=== PATIENT | male | born 1940 | race Caucasian/White ===

== ENCOUNTER 2022-10-22 08:20 | Inpatient (IN) | payer MEDICARE, OTHER ==
[~2022-10-22] VITALS: Ht 177.8 cm; Wt 68.9 kg
[~2022-10-22 08:20] MED LIST: ATOR10TA PO; ATOR10TA69 PO; FURO20TA4 PO; MEMA5TAB42 PO; MEMA5TAB7 PO
[2022-10-22 09:18] LABS: HEMATOCRIT. 41.1 % (42.0-52.0); HEMOGLOBIN. 14.1 g/dL (14.0-18.0); MEAN CORPUSCULAR HEMOGLOBIN 30.9 pg (28.0-32.0); MEAN CORPUSCULAR VOLUME 90.5 fL (80.0-94.0); MEAN PLATELET VOLUME 8.3 fl (7.4-10.4); PLATELET 224 x1000/uL (130-400); RED BLOOD CELL COUNT 4.54 mill/uL (4.7-6.1); RED CELL DISTRIBUTION WIDTH 13.8 % (11.6-14.6)
[2022-10-22 10:32] LABS: PLATELET ESTIMATE NORMAL
[2022-10-22 11:49] LABS: CHLORIDE 104 mEq/L (98-107)
[2022-10-22 11:52] LABS: INR 1.1; PROTHROMBIN TIME 11.3 sec (9.6-11.0)
[2022-10-22] MEDS ORDERED: MAGNESIUM/ALUMINUM HYDROXIDE/SIMETHICONE 30ML UDC PO PRN (13:45)
[2022-10-22] MEDS ORDERED: GUAIFENESIN 200MG/10ML SUGAR FREE UDC PO PRN (13:45)
[2022-10-22] MEDS ORDERED: IPRATROPIUM/ALBUTEROL 0.5-3(2.5)MG/3ML NEB NEB PRN (13:45)
[2022-10-22] MEDS ORDERED: CLONIDINE 0.1MG TABLET PO PRN (13:45)
[2022-10-22] MEDS ORDERED: DOCUSATE SODIUM 100MG CAPSULE PO PRN (13:45)
[2022-10-22] MEDS ORDERED: NITROGLYCERIN 0.4MG TABLET SL SL PRN (13:45)
[2022-10-22] MEDS ORDERED: ACETAMINOPHEN 325MG TABLET PO PRN ×2 (13:45)
[2022-10-22] MEDS ORDERED: NALOXONE HCL 0.4MG/ML VIAL IV PRN (14:00)
[2022-10-22] MEDS: MORPHINE SULFATE 2 MG/ML CPJ (NOT FOR IM USE) IV PRN ×2 (14:06→17:17)
[2022-10-22] MEDS: ONDANSETRON HCL 4MG/2ML INJ IV PRN ×2 (14:06→17:17)
[2022-10-22 15:51] LABS: T4 FREE 1.35 ng/dL (0.76-1.46)
[2022-10-22 16:12] LABS: VITAMIN B12 SERUM 442 pg/mL (211-911)
[2022-10-22 16:17] LABS: FOLIC ACID (FOLATE) SERUM > 20.00 ng/mL (>5.38)
[2022-10-22] MEDS: FERROUS SULFATE 300MG/5ML UDC PO SCH (17:17)
[2022-10-22] MEDS: ENOXAPARIN 40MG/0.4ML SYR SUBCUT SCH (21:00)
[2022-10-22] MEDS: FAMOTIDINE 20MG TABLET PO SCH ×2 (21:05→21:17)
[2022-10-23 05:17] LABS: HEMATOCRIT. 41.3 % (42.0-52.0); HEMOGLOBIN. 14.3 g/dL (14.0-18.0); MEAN CORPUSCULAR HEMOGLOBIN 31.3 pg (28.0-32.0); MEAN CORPUSCULAR VOLUME 90.4 fL (80.0-94.0); PLATELET 242 x1000/uL (130-400); RED BLOOD CELL COUNT 4.57 mill/uL (4.7-6.1); RED CELL DISTRIBUTION WIDTH 13.7 % (11.6-14.6)
[2022-10-23 05:21] VITALS: BP_SYST 140; BP_SYST 147; BP_DIAS 107
[2022-10-23 05:49] LABS: CHLORIDE 103 mEq/L (98-107)
[2022-10-23 05:59] LABS: PHOSPHORUS 3.6 mg/dL (2.5-4.9)
[2022-10-23 08:00] VITALS: BP 134/83
[2022-10-23] MEDS: FERROUS SULFATE 300MG/5ML UDC PO SCH ×3 (08:10→18:10)
[2022-10-23 12:00] VITALS: BP 149/91
[2022-10-23] MEDS ORDERED: IPRATROPIUM BROMIDE (0.02%) 0.5MG/2.5ML NEB HHN PRN (14:15)
[2022-10-23] MEDS ORDERED: ALBUTEROL (0.083%) 2.5MG/3ML NEB HHN PRN (14:15)
[2022-10-23] MEDS ORDERED: VANCOMYCIN HCL 1 GM/VIAL ONE (15:55)
[2022-10-23] MEDS ORDERED: BACITRACIN 15GM TUBE TOP ONE (15:55)
[2022-10-23] MEDS ORDERED: BUPIVACAINE HCL/PF 0.5% (5MG/ML) 30ML ONE (15:55)
[2022-10-23] MEDS ORDERED: LIDOCAINE HCL/EPINEPHRINE 1%-EPI 1:100,000 20 ML VIAL ONE (15:55)
[2022-10-23 16:00] VITALS: BP 101/65
[2022-10-23] MEDS ORDERED: LIDOCAINE HCL 1% 10 MG/ML 10ML VIAL ONE (16:36)
[2022-10-23] MEDS ORDERED: CEFAZOLIN SODIUM 1000MG/VIAL ONE (16:36)
[2022-10-23] MEDS ORDERED: PROPOFOL 200MG/20ML VIAL IV ONE (16:37)
[2022-10-23] MEDS ORDERED: HYDROMORPHONE HCL/PF 2MG/ML CPJ ONE ×2 (16:37)
[2022-10-23] MEDS ORDERED: MIDAZOLAM HCL 2 MG/2 ML VIAL ONE (16:37)
[2022-10-23] MEDS ORDERED: HYDROMORPHONE HCL/PF 2MG/ML CPJ IV PRN (17:30)
[2022-10-23] MEDS ORDERED: ONDANSETRON HCL 4MG/2ML INJ IV PRN (17:30)
[2022-10-23] MEDS ORDERED: LABETALOL 5MG/ML SYR 20 MG/4 ML SYRINGE IV PRN (17:30)
[2022-10-23] MEDS ORDERED: MEPERIDINE HCL/PF 25MG/ML CPJ IV PRN (17:30)
[2022-10-23 18:02] LABS: PLATELET ESTIMATE NORMAL
[2022-10-23 19:37] LABS: BG BASE EXCESS -1.3 mmol/L (-2.0-2.0); BG CARBOXYHEMOGLOBIN 0.8 % (0.5-1.5); BG DEOXYHEMOGLOBIN 2.3 % (0.0-5.0); BG FRACTION INSPIRED OXYGEN 100; BG METHEMOGLOBIN 0.3 % (0.0-1.5); BG OXYGEN SATURATION 97.7 % (92.0-98.5); BG OXYHEMOGLOBIN 96.6 % (94.0-97.0); BG PCO2 42.6 mmHg (35.0-45.0); BG PH 7.369 (7.350-7.450); BG PO2 99.3 mmHg (75.0-100.0); BG SAMPLE SITE LEFT RADIAL; BG TOTAL HEMOGLOBIN 13.8 g/dL (12.0-18.0); BG VENT MODE MASK - NRB
[2022-10-23 23:22] VITALS: BP 128/82
[2022-10-24] VITALS (10 sets, daily range): BP systolic 124–149; BP diastolic 73–82
[2022-10-24] MEDS: CEFAZOLIN 2,000 MG in DEXT 5% WATER 100 ML IV SCH ×3 (04:15→20:13)
[2022-10-24] MEDS: FERROUS SULFATE 300MG/5ML UDC PO SCH ×2 (09:10→13:13)
[2022-10-24] MEDS: MORPHINE SULFATE 2 MG/ML CPJ (NOT FOR IM USE) IV PRN ×2 (09:15→17:30)
[2022-10-24] MEDS: ONDANSETRON HCL 4MG/2ML INJ IV PRN (20:11)
[2022-10-24] MEDS: ENOXAPARIN 40MG/0.4ML SYR SUBCUT SCH (20:11)
[2022-10-24] MEDS: ZOLPIDEM TARTRATE 5MG TABLET PO PRN (20:12)
[2022-10-24] MEDS: TRAMADOL 50MG TABLET PO PRN (20:12)
[2022-10-24] MEDS: FAMOTIDINE 20MG TABLET PO SCH (20:13)
[2022-10-25] VITALS (12 sets, daily range): BP systolic 117–133; BP diastolic 71–86
[2022-10-25] MEDS: CEFAZOLIN 2,000 MG in DEXT 5% WATER 100 ML IV SCH ×3 (03:07→20:08)
[2022-10-25] MEDS: FERROUS SULFATE 300MG/5ML UDC PO SCH ×3 (10:31→17:23)
[2022-10-25] MEDS: FAMOTIDINE 20MG TABLET PO SCH ×2 (10:31→20:09)
[2022-10-25] MEDS: MORPHINE SULFATE 2 MG/ML CPJ (NOT FOR IM USE) IV PRN (17:24)
[2022-10-25] MEDS: ZOLPIDEM TARTRATE 5MG TABLET PO PRN (20:09)
[2022-10-25] MEDS: ENOXAPARIN 40MG/0.4ML SYR SUBCUT SCH (20:09)
[2022-10-25] MEDS: ONDANSETRON HCL 4MG/2ML INJ IV PRN (20:10)
[2022-10-25] MEDS: TRAMADOL 50MG TABLET PO PRN (20:10)
[2022-10-26] VITALS (40 sets, daily range): BP systolic 115–155; BP diastolic 70–98
[2022-10-26] MEDS: CEFAZOLIN 2,000 MG in DEXT 5% WATER 100 ML IV SCH ×2 (03:08→12:20)
[2022-10-26] MEDS ORDERED: DIATR MEGLU/DIATRIZOATE SOLN 30ML ONE (07:50)
[2022-10-26] MEDS: FERROUS SULFATE 300MG/5ML UDC PO SCH ×2 (08:00→12:18)
[2022-10-26] MEDS: FAMOTIDINE 20MG TABLET PO SCH (09:00)
== END 2022-10-26 16:45 | DRG 480 ==
LOC: ER 08:20 → MICUSO 11:53 → SUPCPDRO 13:33 → 7WST 10-23 05:45 → 5EST 10-23 23:20
PROVIDERS: ADMIT Internal Medicine; ATTEND Internal Medicine
PROC: 0QS606Z Reposition Right Upper Femur with Intramedullary Internal Fixation Device, Open Approach (ICD-10-PCS; principal; 2022-10-23)
DX: S72.141A Displaced intertrochanteric fracture of right femur, initial encounter for closed fracture (principal); G93.41 Metabolic encephalopathy; E44.1 Mild protein-calorie malnutrition; K94.23 Gastrostomy malfunction; E78.00 Pure hypercholesterolemia, unspecified; I10 Essential (primary) hypertension; F03.90 Unspecified dementia, unspecified severity, without behavioral disturbance, psychotic disturbance, mood disturbance, and anxiety; Z20.822 Contact with and (suspected) exposure to COVID-19; R13.10 Dysphagia, unspecified; R73.9 Hyperglycemia, unspecified; R26.9 Unspecified abnormalities of gait and mobility; Z68.21 Body mass index [BMI] 21.0-21.9, adult; Z82.49 Family history of ischemic heart disease and other diseases of the circulatory system; Z87.891 Personal history of nicotine dependence; Z85.819 Personal history of malignant neoplasm of unspecified site of lip, oral cavity, and pharynx; W18.30XA Fall on same level, unspecified, initial encounter; Y93.89 Activity, other specified; Y92.89 Other specified places as the place of occurrence of the external cause; Y99.8 Other external cause status; Y84.9 Medical procedure, unspecified as the cause of abnormal reaction of the patient, or of later complication, without mention of misadventure at the time of the procedure
CPT/HCPCS: 36415; 36600; 71045; 72170; 73502; 73552; 74018; 76000; 80053; 82375; 82607; 82746; 82805; 83540; 83550; 83735; 84100; 84439; 84443; 85025; 87426; 92523; 92610; 93005; 93970; 94640; 97162; 97166; 97530; 99285; C9803; J0690; J1170; J1650; J2250; J2270; J2405; J2704; J3370; J3490; J7060; Q9963; A4315; C1713

== ENCOUNTER 2022-10-26 16:35 | Inpatient (IN) | payer MEDICARE, OTHER ==
[~2022-10-26] VITALS: Ht 177.8 cm; Wt 66.2 kg
[2022-10-26 16:35] VITALS: BP 123/80
[2022-10-26 16:40] VITALS: BP 123/80
[2022-10-26 20:00] VITALS: BP 161/90
[2022-10-26] MEDS ORDERED: ACETAMINOPHEN 325MG TABLET PO PRN (22:00)
[2022-10-26] MEDS ORDERED: NALOXONE HCL 0.4 MG/ML 1ML VIAL IV PRN (22:00)
[2022-10-26] MEDS ORDERED: ONDANSETRON HCL 4MG/2ML INJ IV PRN (22:00)
[2022-10-26] MEDS ORDERED: IPRATROPIUM BROMIDE (0.02%) 0.5MG/2.5ML NEB HHN PRN (22:00)
[2022-10-26] MEDS ORDERED: ALBUTEROL (0.083%) 2.5MG/3ML NEB HHN PRN (22:00)
[2022-10-26] MEDS ORDERED: CLONIDINE 0.1MG TABLET PO PRN (22:00)
[2022-10-26] MEDS ORDERED: NITROGLYCERIN 0.4MG TABLET SL SL PRN (22:00)
[2022-10-26] MEDS ORDERED: MAGNESIUM/ALUMINUM HYDROXIDE/SIMETHICONE 30ML UDC PO PRN (22:00)
[2022-10-26] MEDS ORDERED: GUAIFENESIN 200MG/10ML SUGAR FREE UDC PO PRN (22:00)
[2022-10-26] MEDS: CEFAZOLIN 2,000 MG in DEXT 5% WATER 100 ML IV SCH (22:53)
[2022-10-26] MEDS: FAMOTIDINE 20MG TABLET PO SCH (22:53)
[2022-10-26] MEDS: ENOXAPARIN 40MG/0.4ML SYR SUBCUT SCH (23:11)
[2022-10-26] MEDS: MORPHINE SULFATE 2 MG/ML CPJ (NOT FOR IM USE) IV PRN (23:18)
[2022-10-27 06:40] LABS: HEMATOCRIT. 34.4 % (42.0-52.0); HEMOGLOBIN. 11.7 g/dL (14.0-18.0); MEAN CORPUSCULAR HEMOGLOBIN 30.9 pg (28.0-32.0); MEAN PLATELET VOLUME 8.4 fl (7.4-10.4); PLATELET 239 x1000/uL (130-400); RED BLOOD CELL COUNT 3.78 mill/uL (4.7-6.1); RED CELL DISTRIBUTION WIDTH 13.3 % (11.6-14.6)
[2022-10-27 07:01] LABS: CHLORIDE 107 mEq/L (98-107)
[2022-10-27] MEDS: CEFAZOLIN 2,000 MG in DEXT 5% WATER 100 ML IV SCH ×3 (07:03→21:41)
[2022-10-27 08:00] VITALS: BP 144/85
[2022-10-27] MEDS: FAMOTIDINE 20MG TABLET PO SCH ×2 (09:30→20:49)
[2022-10-27] MEDS: FERROUS SULFATE 300MG/5ML UDC PO SCH ×3 (09:30→17:20)
[2022-10-27] MEDS: MORPHINE SULFATE 2 MG/ML CPJ (NOT FOR IM USE) IV PRN (12:04)
[2022-10-27 12:43] LABS: PLATELET ESTIMATE NORMAL
[2022-10-27] MEDS: AMLODIPINE 5MG TABLET PO SCH (13:51)
[2022-10-27 20:00] VITALS: BP 111/64
[2022-10-27] MEDS: ENOXAPARIN 40MG/0.4ML SYR SUBCUT SCH (23:24)
[2022-10-28] MEDS: CEFAZOLIN 2,000 MG in DEXT 5% WATER 100 ML IV SCH ×3 (05:15→21:36)
[2022-10-28 06:14] LABS: HEMATOCRIT. 32.3 % (42.0-52.0); HEMOGLOBIN. 10.9 g/dL (14.0-18.0); MEAN CORPUSCULAR HEMOGLOBIN 30.6 pg (28.0-32.0); MEAN CORPUSCULAR VOLUME 90.8 fL (80.0-94.0); MEAN PLATELET VOLUME 7.8 fl (7.4-10.4); PLATELET 283 x1000/uL (130-400); RED BLOOD CELL COUNT 3.56 mill/uL (4.7-6.1); RED CELL DISTRIBUTION WIDTH 13.4 % (11.6-14.6)
[2022-10-28 06:17] LABS: CHLORIDE 107 mEq/L (98-107)
[2022-10-28 06:32] LABS: TOTAL IRON BINDING CAPACITY 118 ug/dL (250-450)
[2022-10-28 07:01] LABS: FOLIC ACID (FOLATE) SERUM 18.9 ng/mL (>5.38)
[2022-10-28 08:00] VITALS: BP 142/77
[2022-10-28] MEDS: AMLODIPINE 5MG TABLET PO SCH (08:23)
[2022-10-28] MEDS: FAMOTIDINE 20MG TABLET PO SCH (08:23)
[2022-10-28] MEDS: FERROUS SULFATE 300MG/5ML UDC PO SCH ×3 (08:23→18:18)
[2022-10-28 10:06] LABS: PLATELET ESTIMATE NORMAL
[2022-10-28] MEDS ORDERED: CYANOCOBALAMIN 1000MCG/ML VIAL IM NR (13:30)
[2022-10-28] MEDS ORDERED: IOPAMIDOL 10 ML VIAL IT ONE (16:51)
[2022-10-28] MEDS ORDERED: DIATRIZOATE MEGLUMINE 300ML INFUS BTL UR ONE (16:52)
[2022-10-28] MEDS ORDERED: DIATR MEGLU/DIATRIZOATE SOLN 30ML ONE (16:55)
[2022-10-28] MEDS: ENOXAPARIN 30MG/0.3ML SYR SUBCUT SCH (18:18)
[2022-10-28] MEDS: MENTHOL/LANOLIN/CALAMINE/ZN OX OINT 71GM TOP PRN (20:15)
[2022-10-28 20:17] VITALS: BP 112/55
[2022-10-29 07:47] LABS: CHLORIDE 103 mEq/L (98-107)
[2022-10-29 08:00] VITALS: BP 145/82
[2022-10-29 08:03] LABS: T4 FREE 1.23 ng/dL (0.76-1.46)
[2022-10-29] MEDS: FERROUS SULFATE 300MG/5ML UDC PO SCH ×3 (11:25→18:21)
[2022-10-29] MEDS: AMLODIPINE 5MG TABLET PO SCH (11:26)
[2022-10-29] MEDS: FAMOTIDINE 20MG TABLET PO SCH (11:27)
[2022-10-29] MEDS: TRAMADOL 50MG TABLET PO PRN ×2 (11:30→18:23)
[2022-10-29] MEDS: ENOXAPARIN 30MG/0.3ML SYR SUBCUT SCH (18:21)
[2022-10-29 20:00] VITALS: BP 138/65
[2022-10-30 06:58] LABS: HEMATOCRIT. 33.8 % (42.0-52.0); HEMOGLOBIN. 11.6 g/dL (14.0-18.0); MEAN CORPUSCULAR HEMOGLOBIN 30.5 pg (28.0-32.0); MEAN CORPUSCULAR VOLUME 89.1 fL (80.0-94.0); MEAN PLATELET VOLUME 7.7 fl (7.4-10.4); PLATELET 340 x1000/uL (130-400); RED BLOOD CELL COUNT 3.79 mill/uL (4.7-6.1); RED CELL DISTRIBUTION WIDTH 13.2 % (11.6-14.6)
[2022-10-30 08:00] VITALS: BP 127/72
[2022-10-30 08:13] LABS: CHLORIDE 100 mEq/L (98-107)
[2022-10-30] MEDS: AMLODIPINE 5MG TABLET PO SCH (08:51)
[2022-10-30] MEDS: FAMOTIDINE 20MG TABLET PO SCH ×2 (08:51→17:35)
[2022-10-30] MEDS: FERROUS SULFATE 300MG/5ML UDC PO SCH ×3 (08:51→17:06)
[2022-10-30] MEDS: TRAMADOL 50MG TABLET PO PRN (10:48)
[2022-10-30 16:58] LABS: PLATELET ESTIMATE NORMAL
[2022-10-30] MEDS: ENOXAPARIN 30MG/0.3ML SYR SUBCUT SCH (17:06)
[2022-10-30] MEDS ORDERED: ENOXAPARIN 40MG/0.4ML SYR SUBCUT SCH (18:00)
[2022-10-30 20:00] VITALS: BP 150/81
[2022-10-31] MEDS: ZOLPIDEM TARTRATE 5MG TABLET PO PRN ×2 (00:54→21:18)
[2022-10-31 08:00] VITALS: BP 120/75
[2022-10-31] MEDS: FAMOTIDINE 20MG TABLET PO SCH ×2 (08:41→17:31)
[2022-10-31] MEDS: FERROUS SULFATE 300MG/5ML UDC PO SCH ×3 (08:41→17:31)
[2022-10-31] MEDS: AMLODIPINE 5MG TABLET PO SCH (08:41)
[2022-10-31] MEDS: TRAMADOL 50MG TABLET PO SCH (08:44)
[2022-10-31] MEDS: ACETAMINOPHEN 500MG TABLET PO SCH (08:52)
[2022-10-31] MEDS: ENOXAPARIN 40MG/0.4ML SYR SUBCUT SCH (17:31)
[2022-10-31 19:46] VITALS: BP 139/64
[2022-10-31] MEDS: MENTHOL/LANOLIN/CALAMINE/ZN OX OINT 71GM TOP PRN (21:14)
[2022-11-01 06:13] LABS: HEMATOCRIT. 33.4 % (42.0-52.0); HEMOGLOBIN. 11.6 g/dL (14.0-18.0); MEAN CORPUSCULAR HEMOGLOBIN 30.8 pg (28.0-32.0); MEAN PLATELET VOLUME 8.2 fl (7.4-10.4); PLATELET 380 x1000/uL (130-400); RED BLOOD CELL COUNT 3.76 mill/uL (4.7-6.1); RED CELL DISTRIBUTION WIDTH 13.6 % (11.6-14.6)
[2022-11-01 06:18] LABS: CHLORIDE 100 mEq/L (98-107)
[2022-11-01 08:40] VITALS: BP 121/70
[2022-11-01] MEDS: FERROUS SULFATE 300MG/5ML UDC PO SCH ×3 (09:38→17:39)
[2022-11-01] MEDS: FAMOTIDINE 20MG TABLET PO SCH ×2 (09:39→17:39)
[2022-11-01] MEDS: ACETAMINOPHEN 500MG TABLET PO SCH (09:40)
[2022-11-01] MEDS: TRAMADOL 50MG TABLET PO SCH (09:40)
[2022-11-01] MEDS: AMLODIPINE 5MG TABLET PO SCH (09:41)
[2022-11-01 13:56] LABS: PLATELET ESTIMATE NORMAL
[2022-11-01] MEDS: ENOXAPARIN 40MG/0.4ML SYR SUBCUT SCH (17:40)
[2022-11-01 20:00] VITALS: BP 142/82
[2022-11-01] MEDS: ZOLPIDEM TARTRATE 5MG TABLET PO PRN (22:42)
[2022-11-02 06:00] LABS: HEMATOCRIT. 33.8 % (42.0-52.0); HEMOGLOBIN. 11.5 g/dL (14.0-18.0); MEAN CORPUSCULAR HEMOGLOBIN 30.8 pg (28.0-32.0); MEAN PLATELET VOLUME 7.8 fl (7.4-10.4); PLATELET 371 x1000/uL (130-400); RED BLOOD CELL COUNT 3.76 mill/uL (4.7-6.1); RED CELL DISTRIBUTION WIDTH 13.7 % (11.6-14.6)
[2022-11-02 06:08] LABS: CHLORIDE 102 mEq/L (98-107)
[2022-11-02 08:00] VITALS: BP 128/85
[2022-11-02] MEDS: TRAMADOL 50MG TABLET PO SCH (08:45)
[2022-11-02] MEDS: ACETAMINOPHEN 500MG TABLET PO SCH (08:45)
[2022-11-02] MEDS: AMLODIPINE 5MG TABLET PO SCH (08:46)
[2022-11-02] MEDS: FAMOTIDINE 20MG TABLET PO SCH ×2 (08:46→17:52)
[2022-11-02 09:09] LABS: 25-HYDROXY VITAMIN D3 38 ng/mL (.)
[2022-11-02] MEDS: ENOXAPARIN 40MG/0.4ML SYR SUBCUT SCH (17:00)
[2022-11-02] MEDS: ZOLPIDEM TARTRATE 5MG TABLET PO PRN (19:42)
[2022-11-02 19:47] VITALS: BP 140/57
[2022-11-02 23:29] LABS: PLATELET ESTIMATE NORMAL
[2022-11-03 08:00] VITALS: BP 112/73
[2022-11-03] MEDS: FAMOTIDINE 20MG TABLET PO SCH ×2 (10:16→18:05)
[2022-11-03] MEDS: ACETAMINOPHEN 500MG TABLET PO SCH (10:16)
[2022-11-03] MEDS: TRAMADOL 50MG TABLET PO SCH (10:17)
[2022-11-03] MEDS: AMLODIPINE 5MG TABLET PO SCH (10:18)
[2022-11-03] MEDS: ENOXAPARIN 40MG/0.4ML SYR SUBCUT SCH (18:05)
[2022-11-03 19:47] VITALS: BP 136/71
[2022-11-03] MEDS: ZOLPIDEM TARTRATE 5MG TABLET PO PRN (21:09)
[2022-11-04] MEDS: TRAMADOL 50MG TABLET PO PRN ×3 (03:47→17:53)
[2022-11-04 08:00] VITALS: BP 133/82
[2022-11-04] MEDS: TRAMADOL 50MG TABLET PO SCH (09:00)
[2022-11-04] MEDS: FAMOTIDINE 20MG TABLET PO SCH ×2 (09:44→17:53)
[2022-11-04] MEDS: AMLODIPINE 5MG TABLET PO SCH (09:46)
[2022-11-04] MEDS: ACETAMINOPHEN 500MG TABLET PO SCH (09:46)
[2022-11-04] MEDS: ENOXAPARIN 40MG/0.4ML SYR SUBCUT SCH (17:54)
[2022-11-04 20:00] VITALS: BP 120/68
[2022-11-04] MEDS: ZOLPIDEM TARTRATE 5MG TABLET PO PRN (22:44)
[2022-11-05 08:00] VITALS: BP 133/74
[2022-11-05] MEDS: ACETAMINOPHEN 500MG TABLET PO SCH (09:35)
[2022-11-05] MEDS: FAMOTIDINE 20MG TABLET PO SCH ×2 (09:36→16:21)
[2022-11-05] MEDS: TRAMADOL 50MG TABLET PO SCH (09:36)
[2022-11-05] MEDS: AMLODIPINE 5MG TABLET PO SCH (09:36)
[2022-11-05] MEDS: ENOXAPARIN 40MG/0.4ML SYR SUBCUT SCH (16:21)
[2022-11-05 20:00] VITALS: BP 106/72
[2022-11-05] MEDS: ACETAMINOPHEN 325MG TABLET PO PRN (22:26)
[2022-11-06] MEDS: ACETAMINOPHEN 325MG TABLET PO PRN ×2 (06:29→19:56)
[2022-11-06 07:08] LABS: BASOPHILS % 1.2 % (0.0-2.0); EOSINOPHILS % 3.3 % (0.0-5.0); HEMATOCRIT. 32.7 % (42.0-52.0); HEMOGLOBIN. 11.2 g/dL (14.0-18.0); LYMPHOCYTES % 7.2 % (20.0-50.0); MEAN CORPUSCULAR HEMOGLOBIN 30.7 pg (28.0-32.0); MEAN CORPUSCULAR VOLUME 89.8 fL (80.0-94.0); MEAN PLATELET VOLUME 8.5 fl (7.4-10.4); MONOCYTES % 14.2 % (2.0-8.0); NEUTROPHILS % 74.1 % (40.0-76.0); PLATELET 371 x1000/uL (130-400); RED BLOOD CELL COUNT 3.65 mill/uL (4.7-6.1); RED CELL DISTRIBUTION WIDTH 14.1 % (11.6-14.6)
[2022-11-06 08:00] VITALS: BP 129/77
[2022-11-06] MEDS: AMLODIPINE 5MG TABLET PO SCH (09:18)
[2022-11-06] MEDS: FAMOTIDINE 20MG TABLET PO SCH ×2 (09:18→18:10)
[2022-11-06] MEDS: ACETAMINOPHEN 500MG TABLET PO SCH (09:20)
[2022-11-06 15:37] LABS: CHLORIDE 103 mEq/L (98-107)
[2022-11-06] MEDS: ENOXAPARIN 40MG/0.4ML SYR SUBCUT SCH (18:19)
[2022-11-06 19:51] VITALS: BP 136/74
[2022-11-07] MEDS: ACETAMINOPHEN 325MG TABLET PO PRN ×2 (02:01→20:29)
[2022-11-07 08:00] VITALS: BP 133/79
[2022-11-07] MEDS: AMLODIPINE 5MG TABLET PO SCH (09:11)
[2022-11-07] MEDS: FAMOTIDINE 20MG TABLET PO SCH ×2 (09:11→17:01)
[2022-11-07] MEDS: ACETAMINOPHEN 500MG TABLET PO SCH (09:11)
[2022-11-07] MEDS: ENOXAPARIN 40MG/0.4ML SYR SUBCUT SCH (17:01)
[2022-11-07] MEDS ORDERED: DIATR MEGLU/DIATRIZOATE SOLN 30ML ONE (17:56)
[2022-11-07 20:00] VITALS: BP 123/77
[2022-11-08] MEDS: ACETAMINOPHEN 325MG TABLET PO PRN (02:25)
[2022-11-08 08:00] VITALS: BP 122/74
[2022-11-08] MEDS: AMLODIPINE 5MG TABLET PO SCH (09:18)
[2022-11-08] MEDS: FAMOTIDINE 20MG TABLET PO SCH ×2 (09:19→16:31)
[2022-11-08] MEDS: ACETAMINOPHEN 500MG TABLET PO SCH (09:19)
[2022-11-08] MEDS: ENOXAPARIN 40MG/0.4ML SYR SUBCUT SCH (16:31)
[2022-11-08 20:00] VITALS: BP 134/79
[2022-11-09 08:00] VITALS: BP 117/74
[2022-11-09] MEDS: DOCUSATE SODIUM 100MG CAPSULE PO PRN (09:07)
[2022-11-09] MEDS: FAMOTIDINE 20MG TABLET PO SCH ×2 (09:08→16:53)
[2022-11-09] MEDS: ACETAMINOPHEN 500MG TABLET PO SCH (09:08)
[2022-11-09] MEDS: AMLODIPINE 5MG TABLET PO SCH (09:09)
[2022-11-09] MEDS: POLYETHYLENE GLYCOL 3350 (17GM) 1 DOSE PACK PEG SCH (11:31)
[2022-11-09] MEDS: ENOXAPARIN 40MG/0.4ML SYR SUBCUT SCH (16:53)
[2022-11-09 20:00] VITALS: BP 127/84
[2022-11-10 06:40] LABS: CHLORIDE 102 mEq/L (98-107)
[2022-11-10 06:49] LABS: HEMATOCRIT. 33.9 % (42.0-52.0); HEMOGLOBIN. 11.7 g/dL (14.0-18.0); MEAN CORPUSCULAR HEMOGLOBIN 30.6 pg (28.0-32.0); MEAN CORPUSCULAR VOLUME 88.7 fL (80.0-94.0); MEAN PLATELET VOLUME 8.4 fl (7.4-10.4); PLATELET 337 x1000/uL (130-400); RED BLOOD CELL COUNT 3.82 mill/uL (4.7-6.1); RED CELL DISTRIBUTION WIDTH 14.2 % (11.6-14.6)
[2022-11-10 08:00] VITALS: BP 121/71
[2022-11-10] MEDS: FAMOTIDINE 20MG TABLET PO SCH ×2 (10:17→18:21)
[2022-11-10] MEDS: POLYETHYLENE GLYCOL 3350 (17GM) 1 DOSE PACK PEG SCH (10:18)
[2022-11-10] MEDS: AMLODIPINE 5MG TABLET PO SCH (10:18)
[2022-11-10] MEDS: ACETAMINOPHEN 500MG TABLET PO SCH (10:19)
[2022-11-10 13:51] LABS: PLATELET ESTIMATE NORMAL
[2022-11-10] MEDS: ENOXAPARIN 40MG/0.4ML SYR SUBCUT SCH (17:55)
[2022-11-10 20:00] VITALS: BP 139/57
[2022-11-11] MEDS: ZOLPIDEM TARTRATE 5MG TABLET PO PRN ×2 (01:23→23:12)
[2022-11-11 08:00] VITALS: BP 132/77
[2022-11-11] MEDS: POLYETHYLENE GLYCOL 3350 (17GM) 1 DOSE PACK PEG SCH (12:55)
[2022-11-11] MEDS: AMLODIPINE 5MG TABLET PO SCH (12:56)
[2022-11-11] MEDS: FAMOTIDINE 20MG TABLET PO SCH ×2 (12:56→18:00)
[2022-11-11] MEDS: ACETAMINOPHEN 500MG TABLET PO SCH (12:57)
[2022-11-11] MEDS: ENOXAPARIN 40MG/0.4ML SYR SUBCUT SCH (18:00)
[2022-11-11] MEDS: DOCUSATE SODIUM 100MG CAPSULE PO PRN (18:00)
[2022-11-11 19:54] VITALS: BP 135/49
[2022-11-11] MEDS: ACETAMINOPHEN 325MG TABLET PO PRN (23:12)
[2022-11-12 06:05] LABS: BASOPHILS % 1.1 % (0.0-2.0); EOSINOPHILS % 4.5 % (0.0-5.0); HEMATOCRIT. 35.5 % (42.0-52.0); LYMPHOCYTES % 11.3 % (20.0-50.0); MEAN CORPUSCULAR HEMOGLOBIN 30.2 pg (28.0-32.0); MEAN CORPUSCULAR VOLUME 89.6 fL (80.0-94.0); MONOCYTES % 14.3 % (2.0-8.0); NEUTROPHILS % 68.8 % (40.0-76.0); PLATELET 312 x1000/uL (130-400); RED BLOOD CELL COUNT 3.96 mill/uL (4.7-6.1); RED CELL DISTRIBUTION WIDTH 14.2 % (11.6-14.6)
[2022-11-12 06:26] LABS: CHLORIDE 102 mEq/L (98-107)
[2022-11-12 07:59] VITALS: BP 131/77
[2022-11-12] MEDS: POLYETHYLENE GLYCOL 3350 (17GM) 1 DOSE PACK PEG SCH (08:02)
[2022-11-12] MEDS: FAMOTIDINE 20MG TABLET PO SCH ×2 (08:02→17:04)
[2022-11-12] MEDS: ACETAMINOPHEN 500MG TABLET PO SCH (08:03)
[2022-11-12] MEDS: AMLODIPINE 5MG TABLET PO SCH (08:04)
[2022-11-12] MEDS: ENOXAPARIN 40MG/0.4ML SYR SUBCUT SCH (17:04)
[2022-11-12 20:00] VITALS: BP 131/68
[2022-11-12] MEDS: ZOLPIDEM TARTRATE 5MG TABLET PO PRN (23:55)
[2022-11-13 08:00] VITALS: BP 127/72
[2022-11-13] MEDS: AMLODIPINE 5MG TABLET PO SCH (09:31)
[2022-11-13] MEDS: POLYETHYLENE GLYCOL 3350 (17GM) 1 DOSE PACK PEG SCH (09:31)
[2022-11-13] MEDS: FAMOTIDINE 20MG TABLET PO SCH (09:32)
[2022-11-13] MEDS: ACETAMINOPHEN 500MG TABLET PO SCH (09:32)
[2022-11-13 10:55] VITALS: BP 127/72
[2022-11-13] MEDS: ENOXAPARIN 40MG/0.4ML SYR SUBCUT SCH (16:42)
[2022-11-13 20:00] VITALS: BP 128/79
== END 2022-11-13 23:30 | DRG 535 ==
PROVIDERS: ADMIT Physical Medicine & Rehabilitation Spinal Cord Injury Medicine; ATTEND Internal Medicine
DX: S72.141A Displaced intertrochanteric fracture of right femur, initial encounter for closed fracture (principal); E43 Unspecified severe protein-calorie malnutrition; G93.41 Metabolic encephalopathy; K94.23 Gastrostomy malfunction; F03.93 Unspecified dementia, unspecified severity, with mood disturbance; D62 Acute posthemorrhagic anemia; N17.9 Acute kidney failure, unspecified; R13.12 Dysphagia, oropharyngeal phase; R13.11 Dysphagia, oral phase; E86.0 Dehydration; E78.00 Pure hypercholesterolemia, unspecified; D72.829 Elevated white blood cell count, unspecified; D63.8 Anemia in other chronic diseases classified elsewhere; I10 Essential (primary) hypertension; R47.1 Dysarthria and anarthria; W18.39XA Other fall on same level, initial encounter; R73.9 Hyperglycemia, unspecified; R53.81 Other malaise; R94.6 Abnormal results of thyroid function studies; R26.2 Difficulty in walking, not elsewhere classified; R74.01 Elevation of levels of liver transaminase levels; D64.9 Anemia, unspecified; Z82.49 Family history of ischemic heart disease and other diseases of the circulatory system; Z85.819 Personal history of malignant neoplasm of unspecified site of lip, oral cavity, and pharynx; Z85.01 Personal history of malignant neoplasm of esophagus; Z91.81 History of falling; Z87.891 Personal history of nicotine dependence; Z68.20 Body mass index [BMI] 20.0-20.9, adult; Z79.899 Other long term (current) drug therapy; Z88.5 Allergy status to narcotic agent; Y93.89 Activity, other specified; Y92.89 Other specified places as the place of occurrence of the external cause; Y99.8 Other external cause status
CPT/HCPCS: 36415; 73521; 74018; 80048; 80053; 82140; 82306; 82607; 82728; 82746; 83036; 83540; 83550; 84134; 84439; 84443; 84481; 85025; 87426; 92523; 92610; 93970; 97110; 97116; 97162; 97166; 97530; 97535; 97542; A6261; C1893; J0690; J1650; J2270; J3420; J7060; Q9958; Q9963; Q9966